=== PATIENT | male | born 1960 | race Caucasian/White ===

== ENCOUNTER → 2024-06-27 08:32 | Outpatient (REF) | payer BC, SELFPAY | LOC: RAD 08:32 | DX: R09.89 Other specified symptoms and signs involving the circulatory and respiratory systems (principal) | CPT/HCPCS: 93922; 93925 ==

== ENCOUNTER → 2025-03-10 14:37 | Outpatient (REF) | payer MEDICARE, OTHER, SELFPAY | LOC: CLAB 14:37 | PROVIDERS: ATTENDING PHYSICIAN Urology | DX: Z85.51 Personal history of malignant neoplasm of bladder (principal) | CPT/HCPCS: 88112 ==

== ENCOUNTER → 2025-03-19 11:23 | Outpatient (REF) | payer MEDICARE, OTHER, SELFPAY | LOC: HWRAD 11:23 | DX: M89.8X1 Other specified disorders of bone, shoulder (principal) | CPT/HCPCS: 71046 ==

== ENCOUNTER → 2025-04-04 07:15 | Outpatient (REF) | payer MEDICARE, OTHER, SELFPAY | LOC: HWRCS 07:15 | PROVIDERS: ATTENDING PHYSICIAN Internal Medicine Cardiovascular Disease | DX: I77.810 Thoracic aortic ectasia (principal); Z86.79 Personal history of other diseases of the circulatory system | CPT/HCPCS: 93306 ==

== ENCOUNTER → 2025-05-26 07:11 | Outpatient (REF) | payer MEDICARE, OTHER, SELFPAY | LOC: RAD 07:11 | PROVIDERS: ATTENDING PHYSICIAN Internal Medicine Cardiovascular Disease | DX: R00.1 Bradycardia, unspecified (principal); R19.01 Right upper quadrant abdominal swelling, mass and lump | CPT/HCPCS: 76705; 93225; 93226 ==